=== PATIENT | female | born 1945 | race Caucasian/White ===

== ENCOUNTER 2021-07-07 12:03 | Inpatient (IN) | payer MEDICARE ==
[~2021-07-07] VITALS: Ht 154.9 cm; Wt 81.6 kg
[2021-07-08] MEDS ORDERED: BUSPAR 10MG10 MG PO (04:25)
[2021-07-08] MEDS ORDERED: CARVEDILOL25 MG PO (04:25)
[2021-07-08] MEDS ORDERED: DILTIAZEM 24HR180 M1 PO (04:26)
[2021-07-08] MEDS ORDERED: LASIX40 MG PO (04:27)
[2021-07-08] MEDS ORDERED: POTASSIUM CHLO20 ME1 PO (04:27)
[2021-07-08] MEDS ORDERED: LASIX20 MG PO (04:27)
[2021-07-08] MEDS ORDERED: XARELTO15 MG PO (04:28)
[2021-07-08] MEDS ORDERED: XOPENEX0.63 MG/3 INH (04:31)
[2021-07-08 06:36] LABS: HEMOGLOBIN 14.4 gm/dl (12.3-15.3); RED BLOOD COUNT 4.85 M/UL (4.00-5.10); WHITE BLOOD COUNT 11.5 K/UL (4.5-11.0)
[2021-07-08 07:02] LABS: BUN/CREATININE RATIO 30 (0-10)
[2021-07-09 04:59] LABS: HEMOGLOBIN 14.3 gm/dl (12.3-15.3); RED BLOOD COUNT 4.92 M/UL (4.00-5.10); WHITE BLOOD COUNT 10.3 K/UL (4.5-11.0)
[2021-07-10 05:18] LABS: HEMOGLOBIN 14.6 gm/dl (12.3-15.3); RED BLOOD COUNT 4.92 M/UL (4.00-5.10); WHITE BLOOD COUNT 10.4 K/UL (4.5-11.0)
[2021-07-10 06:44] LABS: CREATININE, URINE 76.1 mg/dL (Not Estab.)
[2021-07-11 03:40] LABS: HEMOGLOBIN 15.2 gm/dl (12.3-15.3); RED BLOOD COUNT 5.1 M/UL (4.00-5.10); WHITE BLOOD COUNT 10.9 K/UL (4.5-11.0)
[2021-07-11 17:10] LABS: ORGANISM ID Not indicated. (.); SPECIMEN SOURCE Urine (.); STREPTOCOCCUS PNEUMONIAE AG Negative (Negative)
[2021-07-12 04:41] LABS: HEMOGLOBIN 14.4 gm/dl (12.3-15.3); RED BLOOD COUNT 4.99 M/UL (4.00-5.10)
[2021-07-12] MEDS ORDERED: LEVOFLOXACIN250 MG PO (11:18)
== END 2021-07-12 14:11 | disposition home health service (06) | DRG 871 ==
LOC: PROG CARE 07-08 02:42
PROVIDERS: Internal Medicine; Internal Medicine Pulmonary Disease; ADMIT Internal Medicine
PROC: 5A09357 Assistance with Respiratory Ventilation, Less than 24 Consecutive Hours, Continuous Positive Airway Pressure (ICD-10-PCS; principal; 2021-07-08)
DX: A41.9 Sepsis, unspecified organism (principal); J96.21 Acute and chronic respiratory failure with hypoxia; Z20.822 Contact with and (suspected) exposure to COVID-19; J18.9 Pneumonia, unspecified organism; N17.9 Acute kidney failure, unspecified; E66.2 Morbid (severe) obesity with alveolar hypoventilation; I50.22 Chronic systolic (congestive) heart failure; I13.0 Hypertensive heart and chronic kidney disease with heart failure and stage 1 through stage 4 chronic kidney disease, or unspecified chronic kidney disease; I48.92 Unspecified atrial flutter; I42.9 Cardiomyopathy, unspecified; N30.00 Acute cystitis without hematuria; J44.0 Chronic obstructive pulmonary disease with (acute) lower respiratory infection; I48.20 Chronic atrial fibrillation, unspecified; E86.0 Dehydration; N18.31 Chronic kidney disease, stage 3a; R65.20 Severe sepsis without septic shock; G47.33 Obstructive sleep apnea (adult) (pediatric); M40.209 Unspecified kyphosis, site unspecified; Z79.01 Long term (current) use of anticoagulants; Z88.5 Allergy status to narcotic agent; Z88.0 Allergy status to penicillin; Z88.2 Allergy status to sulfonamides; Z68.34 Body mass index [BMI] 34.0-34.9, adult
CPT/HCPCS: 36415; 36600; 71045; 80048; 80053; 80202; 81001; 82043; 82550; 82553; 82570; 82803; 83540; 83550; 83605; 83735; 83880; 84100; 84156; 84484; 85025; 85027; 86140; 87040; 87086; 87278; 87899; 93005; 94640; 94664; 94760; 97110-GP-CQ; 97116-GP-CQ; 97162; J2185; J2543; J2920; J2930; J3370; J7050